=== PATIENT | female | born 1990 | race Caucasian/White ===

== ENCOUNTER → 2016-08-19 | Day surgery (SDC) | payer OTHER ==
--- NOTE | 2016-08-21 14:11 | PATH ---
Surgical Pathology Report Patient Name: ORAL AYOUB [facility]. Rec. #: [id number] /Age/Gender: 1990 (Age: 25) / F Account: [id number] Location: [facility] Taken: 08/19/2016 Received: 08/19/2016 Reported: 08/21/2016 Physicians: Lindsay Soto CNM Specimen(s) Received LEFT BREAST CORE BIOPSY 2 O'CLOCK, 4CM FN Clinical History US: probably benign; 2:00, 4 cm FN, r/o FA History of fibroadenoma left breast 2013-outside facility Final Diagnosis BREAST, LEFT AND 2:00, 4 CM FROM NIPPLE, US GUIDED CORE BIOPSY: FIBROADENOMA. BACKGROUND FIBROCYSTIC CHANGE WITH DUCT DILATATION, CYSTS FORMATION AND DENSE STROMAL FIBROSIS. Electronically Signed David Crews M.D. Gross Description Received in formalin, labeled "left breast 2:00, 4cmfn" are 4 hopkins-yellow, cylindrical portions of fibroadipose tissue ranging from 1.0-2.0 cm in length and averaging 0.2 cm in diameter. The specimen is submitted in toto in one cassette. Time to formalin fixation: 2 minutes Total formalin fixation time: 08/19/201608/19/2016
== END | disposition home or self-care (01) ==
LOC: FRADUS-SUR 12:58
PROVIDERS: ATTEND Midwife
PROC: 0HBU3ZX Excision of Left Breast, Percutaneous Approach, Diagnostic (ICD-10-PCS; principal; 2016-08-19)
DX: N63 Unspecified lump in breast (principal); D24.2 Benign neoplasm of left breast
CPT/HCPCS: 19083; 87899; 88305-TC; A4648